=== PATIENT | female | born 1930 | race Caucasian/White ===

== ENCOUNTER 2021-03-16 08:19 | Inpatient (IN) ==
[2021-03-16] MEDS ORDERED: Morphine 2 MG/ML SYRINGE IV ONE ×2 (08:51→23:00)
[2021-03-16 09:12] LABS: ABS Eosinophils 0.1 10^3/ul (0-0.6); ABS Lymphocytes 1.1 10^3/ul (1.0-4.8); ABS Monocytes 0.5 10^3/ul (0-0.8); ABS Neutrophils 3.7 10^3/ul (1.5-7.7); Eosinophil % 1.2 %; Hematocrit 41 % (35-47); Hemoglobin 13.4 g/dL (12.0-16.0); Lymphocyte % 21.1 %; Mean Corpuscular HGB Conc 33 g/dL (31-36); Mean Corpuscular Hemoglobin 30 pg (27-31); Mean Corpuscular Volume 90 fL (80-97); Mean Platelet Volume 9.1 fL (7.4-10.4); Platelet Count 166 10^3/uL (150-450); Red Cell Distribution Width 14 % (10-15); White Blood Count 5.4 10^3/uL (3.5-10.8)
[2021-03-16 09:17] LABS: Urine Appearance Clear; Urine Bilirubin Negative (Negative); Urine Blood Negative (Negative); Urine Color Straw; Urine Glucose Negative (Negative); Urine Ketones Negative (Negative); Urine Nitrite Negative (Negative); Urine Protein Negative (Negative); Urine Specific Gravity 1.006 (1.002-1.030); Urine Urobilinogen Negative (Negative)
[2021-03-16 09:31] LABS: Troponin I 0.01 ng/mL (<0.03)
[2021-03-16 09:34] LABS: Calcium 9.8 mg/dL (8.6-10.3); eGFR CKD-EPI 60.7 (>60)
[2021-03-16 09:41] LABS: Potassium 3.7 mmol/L (3.5-5.0)
[2021-03-16 11:05] LABS: Rapid COVID-19 Molecular Undetected (Undetected)
[2021-03-16] MEDS ORDERED: hydrALAZINE 20 mg/ml 1 ML Vial IV IV SLOW PU ONE (12:28)
[2021-03-16] MEDS: Prochlorperazine 5 mg/ml 2 ml VIAL (10 mg) IV PRN (17:14)
[2021-03-16] MEDS: Morphine 2 MG/ML SYRINGE IV PRN ×3 (17:50→22:23)
[2021-03-16] MEDS: Heparin 5000 UNITS/ML 1 mL VIAL SUBCUT SCH (23:38)
[2021-03-17] MEDS ORDERED: Acetaminophen IV 1 GM/100ML 100 ML IV ONE (01:00)
[2021-03-17] MEDS: Morphine 2 MG/ML SYRINGE IV PRN (03:39)
[2021-03-17] MEDS: Heparin 5000 UNITS/ML 1 mL VIAL SUBCUT SCH ×2 (05:12→15:50)
[2021-03-17] MEDS ORDERED: Propofol 10 MG/ML 20 ML BTL ONE (08:02)
[2021-03-17] MEDS ORDERED: fentaNYL 100 mcg/2 ml 50 MCG/ML VIAL ONE ×2 (08:03→09:10)
[2021-03-17] MEDS ORDERED: Rocuronium 50 mg VIAL 10 mg/ml 5 ml VIAL (50 mg) ONE (08:03)
[2021-03-17] MEDS ORDERED: ceFAZolin VIAL VIAL ONE (09:04)
[2021-03-17] MEDS ORDERED: Bupivacaine 0.5% 50 ML MDV VIAL ONE (09:22)
[2021-03-17] MEDS ORDERED: Vancomycin 1,000 MG VIAL ONE (09:23)
[2021-03-17] MEDS ORDERED: Phenylephrine 40 mcg/mL 10mL (400mcg) SYRINGE ONE (10:31)
[2021-03-17] MEDS: ceFAZolin 1 GM ADVAN 1 GM in NS 0.9% 50 ML 50 ML IVPB SCH (17:23)
[2021-03-17] MEDS: Prochlorperazine 5 mg/ml 2 ml VIAL (10 mg) IV PRN (19:36)
[2021-03-17] MEDS ORDERED: Lactated Ringers 500 ml BAG 500 ML IV ONE (19:54)
[2021-03-18] MEDS: ceFAZolin 1 GM ADVAN 1 GM in NS 0.9% 50 ML 50 ML IVPB SCH ×2 (00:30→10:02)
[2021-03-18] MEDS: Morphine 2 MG/ML SYRINGE IV PRN (00:32)
[2021-03-18] MEDS ORDERED: Polyethylene Glycol 3350 17 GM PACKET PO PRN (10:09)
[2021-03-18] MEDS ORDERED: Magnesium Hydroxide LIQ 30 ML UDC PO PRN (10:09)
[2021-03-18] MEDS: Prochlorperazine 5 mg/ml 2 ml VIAL (10 mg) IV PRN (11:20)
[2021-03-18 11:54] LABS: ABS Lymphocytes 0.9 10^3/ul (1.0-4.8); ABS Monocytes 1.5 10^3/ul (0-0.8); ABS Neutrophils 7.3 10^3/ul (1.5-7.7); Hematocrit 32 % (35-47); Hemoglobin 10.9 g/dL (12.0-16.0); Lymphocyte % 8.9 %; Mean Corpuscular HGB Conc 34 g/dL (31-36); Mean Corpuscular Hemoglobin 30 pg (27-31); Mean Corpuscular Volume 89 fL (80-97); Mean Platelet Volume 8.8 fL (7.4-10.4); Platelet Count 185 10^3/uL (150-450); Red Cell Distribution Width 14 % (10-15); White Blood Count 9.7 10^3/uL (3.5-10.8)
[2021-03-18] MEDS ORDERED: Metoprolol Tartrate 5 mg VIAL 5 ml VIAL (1 mg/ml) IV ONE (12:18)
[2021-03-18 12:43] LABS: Calcium 8.6 mg/dL (8.6-10.3); Magnesium 1.9 mg/dL (1.9-2.7); Potassium 3.8 mmol/L (3.5-5.0); eGFR CKD-EPI 38.5 (>60)
[2021-03-18] MEDS ORDERED: NS 0.9% 1000 ml BAG 1,000 ML IV SCH (16:00)
[2021-03-18] MEDS ORDERED: Magnesium Hydroxide LIQ 30 ML UDC PO SCH (21:00)
[2021-03-18] MEDS: Senna TAB 8.6 mg TAB PO PRN (22:31)
[2021-03-19 05:56] LABS: ABS Lymphocytes 0.8 10^3/ul (1.0-4.8); ABS Monocytes 1.2 10^3/ul (0-0.8); ABS Neutrophils 5.4 10^3/ul (1.5-7.7); Eosinophil % 0.1 %; Hematocrit 27 % (35-47); Hemoglobin 9.2 g/dL (12.0-16.0); Lymphocyte % 10.2 %; Mean Corpuscular HGB Conc 34 g/dL (31-36); Mean Corpuscular Hemoglobin 31 pg (27-31); Mean Corpuscular Volume 90 fL (80-97); Mean Platelet Volume 8.9 fL (7.4-10.4); Platelet Count 142 10^3/uL (150-450); Red Blood Count 3.04 10^6 /uL (3.70-4.87); Red Cell Distribution Width 14 % (10-15); White Blood Count 7.3 10^3/uL (3.5-10.8)
[2021-03-19 06:15] LABS: Calcium 8.2 mg/dL (8.6-10.3); Potassium 3.3 mmol/L (3.5-5.0); eGFR CKD-EPI 43.1 (>60)
[2021-03-19] MEDS: KCL 20 MEQ/100 ML IVPREMIX 20 MEQ/100 ML BAG IV SCH ×2 (08:58→12:04)
[2021-03-19] MEDS ORDERED: NS 0.9% 1000 ml BAG 1,000 ML IV SCH (09:30)
[2021-03-19] MEDS ORDERED: Iron Sucrose 20 MG/ML 5 ML VIAL IV PUSH ONE (09:32)
[2021-03-19] MEDS ORDERED: Iron Sucrose 200 MG in NS 0.9% 100 ml IVPB ONE (10:30)
[2021-03-19] MEDS: Senna TAB 8.6 mg TAB PO PRN (20:29)
[2021-03-20] MEDS ORDERED: Haloperidol 5 mg/ml SDV IV/IM 5 MG/ML AMP IV SLOW PU ONE (00:54)
[2021-03-20] MEDS: oxyCODONE/Acetamin 5/325 mg TAB PO PRN (01:26)
[2021-03-20] MEDS ORDERED: Morphine 2 MG/ML SYRINGE IV ONE (01:47)
[2021-03-20 05:29] LABS: Hematocrit 26 % (35-47); Hemoglobin 8.8 g/dL (12.0-16.0); Mean Corpuscular HGB Conc 34 g/dL (31-36); Mean Corpuscular Hemoglobin 31 pg (27-31); Mean Corpuscular Volume 90 fL (80-97); Mean Platelet Volume 8.8 fL (7.4-10.4); Platelet Count 184 10^3/uL (150-450); Red Blood Count 2.86 10^6 /uL (3.70-4.87); Red Cell Distribution Width 14 % (10-15); White Blood Count 7.6 10^3/uL (3.5-10.8)
[2021-03-20 05:48] LABS: Calcium 8.5 mg/dL (8.6-10.3); Potassium 3.5 mmol/L (3.5-5.0); eGFR CKD-EPI 61.5 (>60)
[2021-03-20] MEDS ORDERED: Iron Sucrose 20 MG/ML 5 ML VIAL IV PUSH ONE (10:17)
[2021-03-20] MEDS ORDERED: Iron Sucrose 200 MG in NS 0.9% 100 ml IVPB ONE (11:00)
[2021-03-20] MEDS: Senna TAB 8.6 mg TAB PO PRN (23:16)
[2021-03-22 06:09] LABS: Hematocrit 25 % (35-47); Hemoglobin 8.4 g/dL (12.0-16.0); Mean Corpuscular HGB Conc 34 g/dL (31-36); Mean Corpuscular Hemoglobin 30 pg (27-31); Mean Corpuscular Volume 90 fL (80-97); Mean Platelet Volume 7.8 fL (7.4-10.4); Platelet Count 212 10^3/uL (150-450); Red Blood Count 2.78 10^6 /uL (3.70-4.87); Red Cell Distribution Width 14 % (10-15); White Blood Count 5.2 10^3/uL (3.5-10.8)
[2021-03-22] MEDS: oxyCODONE/Acetamin 5/325 mg TAB PO PRN (20:35)
[2021-03-23] MEDS: oxyCODONE/Acetamin 5/325 mg TAB PO PRN ×2 (08:50→20:36)
[2021-03-24] MEDS: oxyCODONE/Acetamin 5/325 mg TAB PO PRN (09:32)
[2021-03-24 22:41] LABS: Urine Appearance Clear; Urine Bilirubin Negative (Negative); Urine Blood Negative (Negative); Urine Color Yellow; Urine Glucose Negative (Negative); Urine Ketones Negative (Negative); Urine Nitrite Negative (Negative); Urine Protein Negative (Negative); Urine Specific Gravity 1.006 (1.002-1.030); Urine Urobilinogen Negative (Negative)
[2021-03-25] MEDS: oxyCODONE/Acetamin 5/325 mg TAB PO PRN ×2 (03:10→09:31)
[2021-03-25] MEDS: Prochlorperazine 5 mg/ml 2 ml VIAL (10 mg) IV PRN (05:12)
[2021-03-25 05:49] LABS: ABS Basophils 0.1 10^3/ul (0-0.2); ABS Lymphocytes 0.7 10^3/ul (1.0-4.8); ABS Monocytes 0.8 10^3/ul (0-0.8); ABS Neutrophils 4.8 10^3/ul (1.5-7.7); Eosinophil % 0.6 %; Hematocrit 25 % (35-47); Hemoglobin 8.2 g/dL (12.0-16.0); Lymphocyte % 11.6 %; Mean Corpuscular HGB Conc 33 g/dL (31-36); Mean Corpuscular Hemoglobin 31 pg (27-31); Mean Corpuscular Volume 92 fL (80-97); Mean Platelet Volume 7.5 fL (7.4-10.4); Platelet Count 270 10^3/uL (150-450); Red Blood Count 2.67 10^6 /uL (3.70-4.87); Red Cell Distribution Width 15 % (10-15); White Blood Count 6.5 10^3/uL (3.5-10.8)
[2021-03-25 06:26] LABS: Calcium 8.9 mg/dL (8.6-10.3); Potassium 4.1 mmol/L (3.5-5.0); eGFR CKD-EPI 71.9 (>60)
[2021-03-26 11:54] VITALS: BP 116/52
== END 2021-03-26 15:35 | disposition home health service (06) | DRG 521 ==
LOC: ED 08:19 → SUATTDRO 10:51 → EDHOLD 10:51 → SSU 12:20
PROVIDERS: ADMIT Internal Medicine; ATTEND Internal Medicine